=== PATIENT | male | born 1940 | race Caucasian/White ===

== ENCOUNTER 2023-03-08 06:44 | Emergency (ER) | payer OTHER ==
[~2023-03-08] VITALS: Ht 172.7 cm; Wt 76.2 kg
[2023-03-08 07:09] VITALS: BP 170/85
[2023-03-08] MEDS ORDERED: CARV25 PO (07:15)
[2023-03-08] MEDS ORDERED: CARBIDOPA-LEVO1 EA19 PO (07:17)
[2023-03-08 08:48] LABS: Source, Urine Clean Catch
[2023-03-08 09:31] LABS: Appearance, Urine Clear (Clear); Bilirubin, Urine Neg (Neg); Blood, Urine 1+ (Neg); Color, Urine Yellow (P-Yellow); Glucose Qualitative, Urine Neg (Neg); Ketones, Urine Neg (Neg); Leukocyte Esterase, Urine Neg (Neg); Nitrite, Urine Neg (Neg); Protein, Urine 2+ (Neg); Urobilinogen, Urine NORM (Normal)
[2023-03-08 10:28] LABS: Bacteria Rare /hpf; Squamous Epithelial Cells Rare /hpf (Few); White Blood Cells, Urine 0-2 /hpf (0-5)
== END 2023-03-08 10:49 | disposition home or self-care (01) ==
LOC: ER 06:44
PROVIDERS: Emergency Medicine
DX: R30.0 Dysuria (principal); G20.A1 Parkinson's disease without dyskinesia, without mention of fluctuations; Z95.1 Presence of aortocoronary bypass graft
CPT/HCPCS: 51798; 81001; 99283-25; A9270

== ENCOUNTER 2023-05-07 19:57 | Emergency (ER) | payer OTHER ==
[~2023-05-07] VITALS: Ht 172.7 cm; Wt 74.8 kg
[~2023-05-07 19:57] MED LIST: CARBIDOPA-LEVO1 EA19 PO; CARV25 PO
[2023-05-07 20:05] VITALS: BP 180/88
== END 2023-05-07 21:07 | disposition home or self-care (01) ==
LOC: ER 19:57
DX: R39.198 Other difficulties with micturition (principal); E86.0 Dehydration; G20.A1 Parkinson's disease without dyskinesia, without mention of fluctuations; Z79.899 Other long term (current) drug therapy
CPT/HCPCS: 51798; 99283-25

== ENCOUNTER 2023-06-09 10:19 | Emergency (ER) | payer OTHER ==
[~2023-06-09] VITALS: Ht 170.2 cm; Wt 77.1 kg
[2023-06-09 10:53] LABS: BASOPHILS ABSOLUTE AUTO 0.03 K/mm3 (0.00-0.23); BASOPHILS PERCENT AUTO 1 % (0-2); EOSINOPHILS ABSOLUTE AUTO 0.16 K/mm3 (0.00-0.68); EOSINOPHILS PERCENT AUTO 3 % (0-6); Hematocrit 44.1 % (37.0-53.0); Hemoglobin 14.8 g/dL (13.5-17.5); IMMATURE GRAN ABSOLUTE AUTO 0.02 K/mm3 (0.00-0.10); IMMATURE GRAN PERCENT AUTO 0 % (0-1); LYMPHOCYTES ABSOLUTE AUTO 1.17 K/mm3 (0.84-5.20); LYMPHOCYTES PERCENT AUTO 20 % (21-46); MONOCYTES ABSOLUTE AUTO 0.56 K/mm3 (0.16-1.47); MONOCYTES PERCENT AUTO 10 % (4-13); Mean Corpuscular HGB 30.2 pg (26.0-34.0); Mean Corpuscular HGB Conc 33.6 g/dL (31.5-36.5); Mean Corpuscular Volume 90 fL (80-100); NEUTROPHILS ABSOLUTE AUTO 3.92 K/mm3 (1.96-9.15); NEUTROPHILS PERCENT AUTO 67 % (41-73); Platelet Count 158 K/mm3 (150-400); RDW Coefficient Variation 13.1 % (11.7-14.2); RDW Standard Deviation 43.1 fL (35.1-46.3); White Blood Cell Count 5.86 K/mm3 (4.00-11.30)
[2023-06-09 11:07] LABS: Albumin, Blood 3.7 g/dL (3.4-5.0); Albumin/Globulin Ratio 1.1 (0.8-1.8); Bilirubin, Total 0.8 mg/dL (0.1-1.0); Bun/Creatinine Ratio 16.8 (12.0-20.0); Calcium, Blood 9.3 mg/dL (8.5-10.1); Creatinine, Blood 0.78 mg/dL (0.60-1.20); Globulin, Blood 3.4 g/dL (2.2-4.0); Total Protein, Blood 7.1 g/dL (6.4-8.2)
[2023-06-09 12:48] VITALS: BP 145/90
[2023-06-09] MEDS ORDERED: OXYC5 (12:52)
[2023-06-09] MEDS ORDERED: CARVEDILOL25 M9 PO (12:52)
[2023-06-09] MEDS ORDERED: ASPI81CH PO (12:52)
[2023-06-09] MEDS ORDERED: LIPITOR80 MG PO (12:52)
[2023-06-09] MEDS ORDERED: LOSARTAN POTASS25 M2 PO (12:53)
[2023-06-09 13:36] LABS: Influenza A, PCR NEGATIVE (NEGATIVE); Influenza B, PCR NEGATIVE (NEGATIVE); Resp Syncytial Virus, PCR NEGATIVE (NEGATIVE); SARS-Cov-2 (COVID-19) PCR, MMC NEGATIVE (NEGATIVE)
== END 2023-06-09 12:54 | disposition home or self-care (01) ==
LOC: ER 10:19
PROVIDERS: Physician Assistant
DX: J43.9 Emphysema, unspecified (principal); J06.9 Acute upper respiratory infection, unspecified; R91.1 Solitary pulmonary nodule; Z79.899 Other long term (current) drug therapy
CPT/HCPCS: 0241U; 71260; 80053; 85025; 85379; 93005; 93010; 99285-25; Q9967

== ENCOUNTER 2023-12-27 13:24 | Inpatient (IN) | payer OTHER ==
[~2023-12-27] VITALS: Ht 167.6 cm; Wt 76.9 kg
[~2023-12-27 13:24] MED LIST changes: +ASPI81CH PO; +CARVEDILOL25 M9 PO; +LIPITOR80 MG PO; +LOSARTAN POTASS25 M2 PO; +OXYC5
[2023-12-27 13:51] LABS: BASOPHILS ABSOLUTE AUTO 0.05 K/mm3 (0.00-0.23); BASOPHILS PERCENT AUTO 1 % (0-2); EOSINOPHILS ABSOLUTE AUTO 0.13 K/mm3 (0.00-0.68); EOSINOPHILS PERCENT AUTO 2 % (0-6); Hematocrit 41.5 % (37.0-53.0); Hemoglobin 14.4 g/dL (13.5-17.5); IMMATURE GRAN ABSOLUTE AUTO 0.02 K/mm3 (0.00-0.10); IMMATURE GRAN PERCENT AUTO 0 % (0-1); LYMPHOCYTES ABSOLUTE AUTO 1.65 K/mm3 (0.84-5.20); LYMPHOCYTES PERCENT AUTO 21 % (21-46); MONOCYTES ABSOLUTE AUTO 1.26 K/mm3 (0.16-1.47); MONOCYTES PERCENT AUTO 16 % (4-13); Mean Corpuscular HGB 30.9 pg (26.0-34.0); Mean Corpuscular HGB Conc 34.7 g/dL (31.5-36.5); Mean Corpuscular Volume 89 fL (80-100); Mean Platelet Volume 9.3 fL (9.1-12.4); NEUTROPHILS ABSOLUTE AUTO 4.69 K/mm3 (1.96-9.15); NEUTROPHILS PERCENT AUTO 60 % (41-73); Platelet Count 169 K/mm3 (150-400); RDW Coefficient Variation 13.1 % (11.7-14.2); RDW Standard Deviation 42.7 fL (35.1-46.3); Red Blood Cell Count 4.66 M/mm3 (4.30-5.90)
[2023-12-27 13:56] LABS: Source, Urine Clean Catch
[2023-12-27 14:03] LABS: Appearance, Urine Clear (Clear); Bilirubin, Urine Neg (Neg); Blood, Urine 3+ (Neg); Color, Urine Yellow (P-Yellow); Glucose Qualitative, Urine Neg (Neg); Ketones, Urine 1+ (Neg); Leukocyte Esterase, Urine 1+ (Neg); Nitrite, Urine Neg (Neg); Protein, Urine 2+ (Neg); Specific Gravity, Urine 1.025 (1.003-1.022); Urobilinogen, Urine 1+ (Normal)
[2023-12-27 14:17] LABS: Albumin, Blood 3.5 g/dL (3.4-5.0); Bilirubin, Total 1.3 mg/dL (0.1-1.0); Bun/Creatinine Ratio 17.6 (12.0-20.0); Calcium, Blood 9.2 mg/dL (8.5-10.1); Creatinine, Blood 0.91 mg/dL (0.60-1.20); Globulin, Blood 3.6 g/dL (2.2-4.0); Total Protein, Blood 7.1 g/dL (6.4-8.2)
[2023-12-27 14:17] LABS: Bacteria Few /hpf; Mucus Light (0-Heavy); Renal Epithelial Rare /hpf (0-Rare); Squamous Epithelial Cells Rare /hpf (Few)
[2023-12-27] MEDS ORDERED: NS 1,000 ML IV SCH ×2 (14:25→18:05)
[2023-12-27] MEDS ORDERED: Acetaminophen 500 MG Tab PO ONE (14:45)
[2023-12-27 15:34] LABS: Influenza A, PCR NEGATIVE (NEGATIVE); Influenza B, PCR NEGATIVE (NEGATIVE); Resp Syncytial Virus, PCR NEGATIVE (NEGATIVE); SARS-Cov-2 (COVID-19) PCR, MMC NEGATIVE (NEGATIVE)
[2023-12-27] MEDS ORDERED: CefTRIAXone Sodium 1,000 MG in NS 100 ML IV ONE (16:35)
[2023-12-27] MEDS ORDERED: Ondansetron HCl 2 MG / ML 2ML Vial IV PRN (18:05)
[2023-12-27] MEDS ORDERED: Acetaminophen 325 MG TABLET PO PRN (18:05)
[2023-12-27] MEDS ORDERED: CARBLEV25 SL (19:43)
[2023-12-27] MEDS ORDERED: Levodopa/Carbidopa 100 / 25 MG Tab PO SCH (21:00)
[2023-12-27] MEDS ORDERED: Lactobacil 2-S.Thermo-Bifido 1 1 Cap PO SCH (21:00)
[2023-12-27 21:55] VITALS: BP 160/110
[2023-12-28 02:59] VITALS: BP 168/71
[2023-12-28 05:44] LABS: Bun/Creatinine Ratio 16.8 (12.0-20.0); Calcium, Blood 8.4 mg/dL (8.5-10.1); Creatinine, Blood 0.89 mg/dL (0.60-1.20); Potassium, Blood 3.9 mmol/L (3.5-5.5)
[2023-12-28 07:48] VITALS: BP 114/70
[2023-12-28] MEDS ORDERED: Carvedilol 6.25 MG Tab PO SCH (08:00)
[2023-12-28] MEDS ORDERED: Losartan Potassium 25 MG Tab PO SCH (09:00)
[2023-12-28] MEDS ORDERED: Enoxaparin 40 MG/0.4 ML SYR SC SCH (09:00)
[2023-12-28 15:58] VITALS: BP 167/68
[2023-12-28] MEDS ORDERED: CefTRIAXone Sodium 1,000 MG in NS 100 ML IV SCH (17:00)
--- NOTE | 2023-12-28 18:38 | NUR ---
SHIFT SUMMARY PT SEEN BY PHYSICAL THERAPY TODAY. SHOWERED TODAY WITH A SBA FOR HELP. SCDS IN PLACE. PT DEVELOPED 102.0 TEMP AT 1558. TREATED WITH TYLENOL, A FAN, AND A COOL WASHCLOTH FOR THE PTS HEAD. TEMP BROKE TO 98.5 AT 1730. PT ORIENTED & PLEASANT IN ROOM. PT HAD ONE EPISODE OF HEMATURIA TODAY. MD AWARE. LAST URINE WAS CLEAR OF VISIBLE BLOOD. MEDICATED FOR HEADACHE ONCE THIS AM. OTHERWISE DENIED PAIN. NO OTHER ACUTE CHANGES IN ASSESSMENT AT THIS TIME. VS REVIEWED. CALL LIGHT IN REACH. AT BEDSIDE.
[2023-12-28 19:23] VITALS: BP 143/68
[2023-12-29 02:13] VITALS: BP 146/73
[2023-12-29 07:37] VITALS: BP 165/77
[2023-12-29 14:55] VITALS: BP 141/74
--- NOTE | 2023-12-29 17:58 | NUR ---
PATIENT A/OX3-4, SLOW TO RESPOND. VSS, AFEBRILE THIS SHIFT. COREG HELD THIS EVENING DUE TO PULSE BEING 50-52 BPM. VOIDING CLEAR/TELLOW URINE. DENIES ANY PAIN WITH URINATION. ROCEPHIN GIVEN TO TREAT UTI. PATIENT UP WITH SBA TO RESTROOM. FAMILY AT BESIDE THIS AFTERNOON AND ARE VERY SUPPORTIVE. PATIENT TEARFUL OFF AND ON TODAY WHEN DISCUSSING PAST TRAUMA. NO OTHER NEW CONCERNS THIS SHIFT. PLEASANT AND COOPERATIVE WITH CARE. FALL PRECAUTIONS IN PLACE PER PROTOCOL.
[2023-12-29 19:09] VITALS: BP 155/65
[2023-12-30 02:08] VITALS: BP 160/78
--- NOTE | 2023-12-30 05:50 | NUR ---
SHIFT SUMMARY PT A&OX3-4 AND ANSWERS QUESTIONS APPROPRIATELY. PT HAS A HX OF PARKINSONS, RUE TREMORS. VSS, NO COMPLAINTS OF CP/PRESSURE OR SOB. PT SPENT MOST OF SHIFT IN BED WITH EYES CLOSED AND RESPIRATIONS EVEN/UNLABORED. PT RECEIVED SCHEDULED MEDICATIONS. NO ACUTE EVENTS AT THIS TIME. PT LEFT IN A POSITION OF SAFETY WITH FALL PRECAUTIONS IN PLACE. PT REPOSITIONED INDEPENDENTLY. CALL LIGHT IN REACH.
[2023-12-30 07:36] VITALS: BP 170/91
[2023-12-30] MEDS ORDERED: Aspirin 81 MG TabEC PO SCH (09:00)
[2023-12-30] MEDS ORDERED: Furosemide 10 MG / ML 2ML Vial IV ONE (09:10)
[2023-12-30 09:52] LABS: Bun/Creatinine Ratio 17.3 (12.0-20.0); Calcium, Blood 8.8 mg/dL (8.5-10.1); Creatinine, Blood 0.64 mg/dL (0.60-1.20); Potassium, Blood 3.5 mmol/L (3.5-5.5)
[2023-12-30 15:37] VITALS: BP 145/63
[2023-12-30] MEDS ORDERED: VISBIOME 112.51 EACH PO (17:14)
[2023-12-30] MEDS ORDERED: CEFU500T30 PO (17:23)
--- NOTE | 2023-12-30 17:30 | NUR ---
PATIENT D/C'D TO HOME WITH FAMILY. DC INSTRUCTIONS AND EDUCATION DISCUSSED WITH PATIENT AND COPY PROVIDED. RX MEDICATIONS SENT TO [facility] ON [address]. PATIENT DENIES ANY FURTHER QUESTIONS OR CONCERNS.
== END 2023-12-30 17:32 | disposition home or self-care (01) | DRG 690 ==
LOC: ER 13:24 → MEDS 13:25
PROVIDERS: Emergency Medicine; Internal Medicine; Nurse Practitioner Acute Care; ADMIT Internal Medicine
DX: N30.01 Acute cystitis with hematuria (principal); E87.1 Hypo-osmolality and hyponatremia; R33.9 Retention of urine, unspecified; I10 Essential (primary) hypertension; Z85.46 Personal history of malignant neoplasm of prostate; G20.A1 Parkinson's disease without dyskinesia, without mention of fluctuations; E78.5 Hyperlipidemia, unspecified; I25.10 Atherosclerotic heart disease of native coronary artery without angina pectoris; Z95.1 Presence of aortocoronary bypass graft; Z95.5 Presence of coronary angioplasty implant and graft
CPT/HCPCS: 0241U; 36415; 70487; 71046; 74177; 80048; 80053; 81001; 83605; 84145; 84484; 85025; 87086; 93005; 93010; 96361; 96365-59; 96366; 97162; 97530; 99285-25; A9270; G0378; J0696; J1940; J7030; Q9967

== ENCOUNTER 2024-07-11 10:40 | Emergency (ER) | payer OTHER ==
[~2024-07-11] VITALS: Ht 167.6 cm; Wt 75.8 kg
[~2024-07-11 10:40] MED LIST changes: +CARBLEV25 SL; +CEFU500T30 PO; +VISBIOME 112.51 EACH PO
[2024-07-11 11:54] LABS: BASOPHILS ABSOLUTE AUTO 0.03 K/mm3 (0.00-0.23); BASOPHILS PERCENT AUTO 1 % (0-2); EOSINOPHILS ABSOLUTE AUTO 0.12 K/mm3 (0.00-0.68); EOSINOPHILS PERCENT AUTO 2 % (0-6); Hematocrit 41.1 % (37.0-53.0); Hemoglobin 14.1 g/dL (13.5-17.5); IMMATURE GRAN ABSOLUTE AUTO 0.02 K/mm3 (0.00-0.10); IMMATURE GRAN PERCENT AUTO 0 % (0-1); LYMPHOCYTES ABSOLUTE AUTO 1.27 K/mm3 (0.84-5.20); LYMPHOCYTES PERCENT AUTO 26 % (21-46); MONOCYTES ABSOLUTE AUTO 0.48 K/mm3 (0.16-1.47); MONOCYTES PERCENT AUTO 10 % (4-13); Mean Corpuscular HGB 30.9 pg (26.0-34.0); Mean Corpuscular HGB Conc 34.3 g/dL (31.5-36.5); Mean Corpuscular Volume 90 fL (80-100); Mean Platelet Volume 9.8 fL (9.1-12.4); NEUTROPHILS ABSOLUTE AUTO 3.04 K/mm3 (1.96-9.15); NEUTROPHILS PERCENT AUTO 61 % (41-73); Platelet Count 167 K/mm3 (150-400); RDW Coefficient Variation 13.2 % (11.7-14.2); RDW Standard Deviation 43.2 fL (35.1-46.3); Red Blood Cell Count 4.57 M/mm3 (4.30-5.90); White Blood Cell Count 4.96 K/mm3 (4.00-11.30)
[2024-07-11 12:16] LABS: Albumin, Blood 3.5 g/dL (3.4-5.0); Albumin/Globulin Ratio 1.1 (0.8-1.8); Bun/Creatinine Ratio 16.5 (12.0-20.0); Calcium, Blood 8.7 mg/dL (8.5-10.1); Creatinine, Blood 0.73 mg/dL (0.60-1.20); Globulin, Blood 3.2 g/dL (2.2-4.0); Potassium, Blood 3.7 mmol/L (3.5-5.5); Total Protein, Blood 6.7 g/dL (6.4-8.2)
[2024-07-11 12:19] LABS: Source, Urine Clean Catch
[2024-07-11 12:32] LABS: Appearance, Urine Hazy (Clear); Bilirubin, Urine Neg (Neg); Blood, Urine 1+ (Neg); Color, Urine Yellow (P-Yellow); Glucose Qualitative, Urine Neg (Neg); Ketones, Urine Neg (Neg); Leukocyte Esterase, Urine 2+ (Neg); Nitrite, Urine Neg (Neg); Protein, Urine 2+ (Neg); Urobilinogen, Urine NORM (Normal)
[2024-07-11 12:40] LABS: Amorphous Light (0-Heavy); Mucus Light (0-Heavy)
[2024-07-11 12:41] LABS: Squamous Epithelial Cells Not Seen /hpf (Few); White Blood Cells, Urine 50-100 /hpf (0-5)
[2024-07-11 12:42] LABS: Bacteria Many /hpf
[2024-07-11] MEDS ORDERED: CEPH500 PO (13:35)
[2024-07-11 13:52] VITALS: BP 140/94
== END 2024-07-11 13:53 | disposition home or self-care (01) ==
LOC: ER 10:40
PROVIDERS: Student in an Organized Health Care Education/Training Program
DX: N39.0 Urinary tract infection, site not specified (principal); Z79.899 Other long term (current) drug therapy; Z79.82 Long term (current) use of aspirin; Z79.2 Long term (current) use of antibiotics
CPT/HCPCS: 80053; 81001; 85025; 99283